=== PATIENT | male | born 1985 | race Caucasian/White ===

== ENCOUNTER 2021-04-29 15:50 | Emergency (ER) | payer OTHER, SELFPAY ==
--- NOTE | ~2021-04-29 | XR_ITS ---
EXAMINATION: XR abdomen/kub 1V DATE: 04/29/2021 16:37 INDICATION: Left flank pain. Nausea. Kidney stone. TECHNIQUE: A supine view of the abdomen on 2 radiographs was obtained. COMPARISON: CT abdomen and pelvis 04/29/2021 FINDINGS: There are no dilated loops of bowel. There is a 3 mm stone at left ureterovesicular junctio n. IMPRESSION: 1. 3 mm stone at left ureterovesicular junction. Reviewed, dictated and finalized at location E. LE SELECTOR
--- NOTE | ~2021-04-29 | CT_ITS ---
EXAMINATION: CT abdomen pelvis wo con DATE: 04/29/2021 16:17 INDICATION: Left flank pain. TECHNIQUE: Computed tomography (CT) of the abdomen and pelvis was performed without intravenous contr ast. Automated exposure control and iterative reconstruction technique were employed. The dose-length product was 522.10 mGy-cm. COMPARISON: CT abdomen and pelvis 11/30/2010 FINDINGS: The visualized portions of the bases are clear without pneumonia or pleural effusion. The h eart size is normal. No pericardial effusion. There is a small sliding hiatal hernia. There is a 7 mm cyst in the liver. The spleen, pancreas, adrenal glands, and right kidney are normal. There is a 1 m m stone in left kidney. There is mild left hydronephrosis and hydroureter. There is a 3 mm stone at l eft ureterovesicular junction. There are no dilated loops of bowel. The appendix is normal. There are no pathologically enlarged lymph nodes. There is no free intraperitoneal fluid. There is mild thorac olumbar spondylosis. IMPRESSION: 1. 3 mm stone at left ureterovesicular junction with mild left hydronephrosis and hydroureter. 2. 1 mm nonobstructing left kidney stone. Reviewed, dictated and finalized at location E. FOREMAN IMPRESSION: 1. 3 mm stone at left ureterovesicular junction with mild left hydronephrosis a nd hydroureter. 2. 1 mm nonobstructing left kidney stone.
[2021-04-29 15:55] VITALS: BP 143/94; PULSE 85; RESP 22; TEMP 36.2; O2SAT 100
--- NOTE | 2021-04-29 16:05 | ED.ABDPAIN ---
HPI - Abdominal Pain General Chief Complaint: Abdominal Pain Stated Complaint: back, abd pain Time Seen by Provider: 04/29/21 15:59 Source: RN notes reviewed History of Present Illness HPI narrative: Patient presents emergency room from home for dental pain. Patient states symptoms began at 9 AM this morning pain is located over the left flank initially and is now rotated in the left lower abdomen described as sharp and stabbing associated with nausea. The patient has any fever chills chest pain shortness of breath vomiting or any other symptoms states he took Tylenol with no relief. States he has a history of previous kidney stone Related Data Allergies Allergy/AdvReac Type Severity Reaction Status Date / Time No Known Allergies Allergy Mild Unverified 05/05/03 16:31 Review of Systems Review of Systems: Gen.: Denies fevers or chills ENT: Denies congestion Respiratory: Denies shortness of breath or cough CV: Denies chest pain or palpitations GI: See HPI denies burning, urgency, frequency or hematuria Musculoskeletal: Denies back pain or muscle pain Neuro: Denies numbness, tingling, weakness or focal weakness Skin: Denies rash Except as documented, all other systems reviewed and negative COUNTS INCLUDE 234 BEDS AT THE [facility] Past Medical History Medical History (Updated 04/29/21 @ 18:27 by Frank Leos DO) Kidney stone Social History Social History (Updated 04/29/21 @ 16:06 by Frank Leos DO) Smoking status: Never smoker Exam Narrative: APPEARANCE: No acute distress, nontoxic, resting in bed HEENT: Normocephalic, atraumatic, OMM RESPIRATORY: No respiratory distress, clear to auscultation bilaterally with no rhonchi wheezing or rales CARDIOVASCULAR: RRR s murmur ABDOMINAL: Soft nondistended, tender palpation left lower quadrant upper quadrant no tenderness right lower quadrant right upper quadrant no rebound or guarding left flank tenderness MUSCULOSKELETAl: Moves all extremities. No clubbing, cyanosis or edema. NEURO: Awake and alert. Following commands, speech normal, no focal deficits SKIN:: Warm, dry. Normal Color PSYCHIATRIC: Normal affect/mood Course Course Emergency Course: Patient states he is feeling better at this time Discussed with patient results of workup and diagnosis. Discussed need for follow-up with primary care, proper use of medication, and reasons to return to the emergency department. Patient understands and agrees to current treatment plan Vital Signs Vital signs: Vital Signs Temperature 97.2 F L 04/29/21 15:55 Pulse Rate 85 04/29/21 15:55 Respiratory Rate 22 H 04/29/21 15:55 Blood Pressure 143/94 H 04/29/21 15:55 Pulse Oximetry 100 04/29/21 15:55 Temperature 97.2 F L 04/29/21 15:55 Pulse Rate 85 04/29/21 15:55 Respiratory Rate 22 H 04/29/21 15:55 Blood Pressure 143/94 H 04/29/21 15:55 Pulse Oximetry 100 04/29/21 15:55 MDM - Abdominal Pain MDM Narrative Medical decision making narrative: Patient with pain that began at 9 this morning kidney stone seen on CT scan blood UA shows blood but no signs of infection white count is elevated 19 I feel this is likely reactive I will start on short course of antibiotics secondary to kidney stone pain is in control at this time will discharge with pain medications and follow-up as an outpatient Lab Data Result diagrams: 04/29/21 16:11 04/29/21 16:12 Labs: Lab Results 04/29/21 04/29/21 04/29/21 Range/Units 16:11 16:12 16:12 WBC 19.6 H (4.5-10.0) K/mm3 RBC 5.51 (4.6-6.20) M/mm3 Hgb 15.5 (14.0-18.0) g/dL Hct 45.5 (42.0-52.0) % MCV 82.6 (80-100) fl MCH 28.1 (26-34) pg MCHC 34.1 (32-36) g/dl RDW 12.6 (11.5-14.5) % Plt Count 277 (150-375) k/mm3 MPV 12.4 H (7.4-10.4) fl Immature Gran % (Auto) 0.5 (0-0.5) % Neut % (Auto) 85.5 H (45.5-73.1) % Lymph % (Auto) 8.5 L (18.3-44.2) % Sibley % (Auto) 5.1 (2.6-8.5) % Eos % (Auto) 0.1 (0
[2021-04-29 16:17] LABS: Basophils Absolute Auto 0.1 K/mm3 (0.0-0.1); Basophils Percent Auto 0.3 % (0.2-1.2); Eosinophils Percent Auto 0.1 % (0-4.4); Hematocrit 45.5 % (42.0-52.0); Hemoglobin 15.5 g/dL (14.0-18.0); Immature Granulocyte Percent A 0.5 % (0-0.5); Lymphocytes Absolute Auto 1.67 K/mm3 (0.9-3.2); Lymphocytes Percent Auto 8.5 % (18.3-44.2); Mean Corpuscular HGB Conc 34.1 g/dl (32-36); Mean Corpuscular Hemoglobin 28.1 pg (26-34); Mean Corpuscular Volume 82.6 fl (80-100); Mean Platelet Volume 12.4 fl (7.4-10.4); Monocytes Percent Auto 5.1 % (2.6-8.5); Neutrophils Absolute Auto 16.7 K/mm3 (1.3-6.7); Neutrophils Percent Auto 85.5 % (45.5-73.1); Platelet Count Result 277 k/mm3 (150-375); Red Blood Count 5.51 M/mm3 (4.6-6.20); Red Cell Distribution Width 12.6 % (11.5-14.5); White Blood Count 19.6 K/mm3 (4.5-10.0)
[2021-04-29] MEDS: SODIUM CHLORIDE 0.9% IV 1,000 ML 999 ML IV CONT (16:19)
[2021-04-29] MEDS: ONDANSETRON INJ 4 MG/2 ML VIAL IV PUSH (16:20)
[2021-04-29] MEDS: KETOROLAC 30 MG/ML VIAL (*BKC) IV PUSH (16:20)
[2021-04-29 16:22] LABS: Add Urine Microscopic? YES; Appearance Urine Clear (Clear); Bilirubin Urine Negative (Negative); Blood Urine Negative (Negative); Color Urine Yellow (Yellow); Glucose Urine UA Negative (Negative); Ketones Urine Negative (Negative); Leukocyte Esterase Ur Negative LEU/UL (Negative); Mucus Urine Rare /lpf; Nitrate Urine Negative (Negative); Protein Urine Negative (Negative); RBC Urine 21-50 /hpf (0-2); Specific Grav Ur 1.023 (1.001-1.035); Urobilinogen Urine Negative mg/dL (<2.0); WBC Urine 0-3 /hpf
[2021-04-29 16:28] LABS: Alanine Aminotransferase 23 U/L (4-50); Albumin Level 4.7 g/dL (3.5-5.1); Alkaline Phosphatase 70 U/L (38-126); Anion Gap 7 mmol/L (8-16); Aspartate Amino Transferase 25 U/L (17-59); Bilirubin,Total 0.8 mg/dL (0.2-1.3); Blood Urea Nitrogen 11 mg/dL (9-20); Calcium 8.9 mg/dL (8.4-10.2); Carbon Dioxide 26 mmol/L (22-30); Chloride 102 mmol/L (98-107); Estimated CRCL calculation 85 ml/min; Estimated Glomerular Filt Rate > 60; Glucose 150 mg/dL (65-110); Lipase 123 U/L (23-300); Potassium 3.4 mmol/L (3.4-5.0); Sodium 135 mmol/L (137-145)
[2021-04-29] MEDS: TAMSULOSIN HCL 0.4 MG CAPSULE PO (16:30)
[2021-04-29] MEDS: MORPHINE SULFATE (*CRX) 4 MG/ML INJ IV PUSH (17:52)
[2021-04-29 18:36] VITALS: BP 134/75; PULSE 92; RESP 18; O2SAT 98
[2021-04-29 18:45] VITALS: PULSE 78; RESP 18; O2SAT 98
== END 2021-04-29 18:46 | disposition home or self-care (01) ==
PROVIDERS: Emergency Medicine; Emergency Provider Emergency Medicine; PCP Internal Medicine
DX: N13.2 Hydronephrosis with renal and ureteral calculous obstruction (principal); Z87.442 Personal history of urinary calculi
CPT/HCPCS: 36415; 74018; 74176; 80053; 81001; 83690; 85025; 96361; 96374; 96375; 99284; A9270; J1885; J2270; J2405; J7030